=== PATIENT | female | born 1950 ===

== ENCOUNTER 2023-08-31 08:12 | Outpatient (CLI) | payer OTHER | END 2023-08-31 08:20 | disposition home or self-care (01) | LOC: TOM 08:12 | PROVIDERS: ATTEND Internal Medicine | DX: K46.9 Unspecified abdominal hernia without obstruction or gangrene (principal) | CPT/HCPCS: 74177; Q9965 ==

== ENCOUNTER 2023-09-04 10:55 | Outpatient (CLI) | payer OTHER | END 2023-09-04 10:56 | disposition home or self-care (01) | LOC: NUCLEAR 10:55 | PROVIDERS: ATTEND Internal Medicine | DX: I51.7 Cardiomegaly (principal) ==

== ENCOUNTER 2023-09-04 12:16 | Outpatient (CLI) | payer OTHER | END 2023-09-04 12:31 | disposition home or self-care (01) | LOC: MRI 12:16 | PROVIDERS: ATTEND Internal Medicine | DX: M54.50 Low back pain, unspecified (principal) | CPT/HCPCS: 72148 ==